=== PATIENT | male | born 1995 | race Two or more races ===

== ENCOUNTER 2021-02-03 14:16 | Inpatient (IN) | payer MEDICAID ==
[~2021-02-03] VITALS: Ht 165.1 cm; Wt 116.3 kg
[~2021-02-03 14:16] MED LIST: ONDA-144
[2021-02-03] MEDS ORDERED: TAMSULOSIN HYDROCHLORIDE 0.4 MG CAP PO ONE (14:30)
[2021-02-03] MEDS ORDERED: SODIUM CHLORIDE 0.9% 1,000 ML IV ONE ×2 (14:30)
[2021-02-03] MEDS ORDERED: KETOROLAC TROMETH 30 MG/ML 1ML VIAL IV ONE (14:30)
[2021-02-03] MEDS ORDERED: ONDANSETRON HCL 4 MG/2 ML VIAL IV ONE (14:30)
[2021-02-03] MEDS ORDERED: PROMETHAZINE HCL 25 MG/ML 1ML IV ONE (14:45)
[2021-02-03] MEDS ORDERED: HYDROmorphone HCL 2 MG/ML VL IV ONE (14:45)
[2021-02-03 15:32] LABS: Basophils # (auto) 0 10 ^3/uL (0-0.2); Basophils % (auto) 0.3 % (0.0-2.0); Eosinophils # (auto) 0 10 ^3/uL (0-0.8); Eosinophils % (auto) 0.2 % (0.0-7.0); Hematocrit 44.1 % (41.0-53.0); Hemoglobin 15.5 g/dL (13.5-17.5); Lymphocytes # (auto) 1.6 10 ^3/uL (0.4-5.4); Mean Corpuscular Hemoglobin 30.9 pg (28.0-32.0); Mean Corpuscular Hgb Conc. 35.2 g/dL (32.0-36.0); Mean Corpuscular Volume 87.9 fL (80.0-100.0); Monocytes # (auto) 0.5 10 ^3/uL (0-1.3); Monocytes % (auto) 4.6 % (0.0-12.0); Neutrophils # (auto) 9.3 10 ^3/uL (1.6-8.6); Neutrophils % (auto) 80.9 % (37.0-80.0); Nucleated Red Blood Cells % 0.1 %; Platelet Count (auto) 297 10^3/uL (140-450); Red Blood Cells 5.02 10^6/uL (4.5-5.90); Red Cell Distribution Width 13.7 % (11.8-14.3); White Blood Cell 11.4 10^3/uL (4.4-10.8)
[2021-02-03 15:47] LABS: Albumin 3.7 g/dL (3.4-5.0); Calcium 8.9 mg/dL (8.5-10.1); Potassium 3.5 mmol/L (3.5-5.1)
[2021-02-03 15:52] LABS: BUN/Creatinine Ratio 16.7; Bilirubin, Total 0.6 mg/dL (0.2-1.0); Total Protein 7.7 g/dL (6.4-8.2)
[2021-02-03] MEDS ORDERED: cefTRIAXone 1GM/50ML D5W 50 ML IV ONE (16:00)
[2021-02-03 18:11] LABS: Urine Amorphous Crystal FEW /hpf (None Seen); Urine Bacteria NONE SEEN /hpf (None Seen); Urine Blood 2+ /uL (Negative); Urine Mucus FEW (None Seen); Urine Specific Gravity 1.026 (1.001-1.035); Urine WBC 11 /hpf (0 - 3)
[2021-02-03] MEDS ORDERED: HYDROcodone-ACET 5/325MG TAB PO PRN (18:15)
[2021-02-03] MEDS ORDERED: ACETAMINOPHEN 500 MG TAB PO PRN (18:15)
[2021-02-03] MEDS ORDERED: ONDANSETRON HCL 4 MG/2 ML VIAL IV PRN (18:15)
[2021-02-03] MEDS ORDERED: MORPHINE SULF INJ 2 MG/ML SYRINGE 1ML IV PRN (18:15)
[2021-02-03] MEDS: SODIUM CHLORIDE 0.9% 1,000 ML IV SCH (18:46)
[2021-02-03 22:00] VITALS: BP 132/62
[2021-02-03] MEDS: DOCUSATE SOD 100 MG CAP PO SCH (22:09)
[2021-02-03] MEDS: traZODone HCL 50 MG TAB PO SCH (22:09)
[2021-02-04] MEDS ORDERED: TRAZ50TA2 PO (01:29)
[2021-02-04] MEDS: SODIUM CHLORIDE 0.9% 1,000 ML IV SCH ×3 (02:52→17:30)
[2021-02-04 05:00] VITALS: BP 124/69
[2021-02-04 05:35] LABS: Basophils # (auto) 0 10 ^3/uL (0-0.2); Basophils % (auto) 0.2 % (0.0-2.0); Eosinophils # (auto) 0 10 ^3/uL (0-0.8); Eosinophils % (auto) 0.3 % (0.0-7.0); Hematocrit 40.7 % (41.0-53.0); Lymphocytes # (auto) 1.9 10 ^3/uL (0.4-5.4); Lymphocytes % (auto) 23.5 % (10.0-50.0); Mean Corpuscular Hemoglobin 30.5 pg (28.0-32.0); Mean Corpuscular Hgb Conc. 34.5 g/dL (32.0-36.0); Mean Corpuscular Volume 88.5 fL (80.0-100.0); Monocytes # (auto) 0.7 10 ^3/uL (0-1.3); Monocytes % (auto) 9.5 % (0.0-12.0); Neutrophils # (auto) 5.2 10 ^3/uL (1.6-8.6); Neutrophils % (auto) 66.5 % (37.0-80.0); Nucleated Red Blood Cells % 0.1 %; Platelet Count (auto) 270 10^3/uL (140-450); Red Blood Cells 4.59 10^6/uL (4.5-5.90); Red Cell Distribution Width 14.1 % (11.8-14.3); White Blood Cell 7.9 10^3/uL (4.4-10.8)
[2021-02-04 05:51] LABS: BUN/Creatinine Ratio 13.7; Calcium 8.7 mg/dL (8.5-10.1); Potassium 4.1 mmol/L (3.5-5.1)
[2021-02-04 08:00] VITALS: BP 112/73
[2021-02-04] MEDS: cefTRIAXone 1GM/50ML D5W 50 ML IV SCH (09:10)
[2021-02-04] MEDS: DOCUSATE SOD 100 MG CAP PO SCH ×2 (10:45→21:51)
[2021-02-04] MEDS: FAMOTIDINE 20 MG TAB PO SCH (10:46)
[2021-02-04 12:00] VITALS: BP 128/82
[2021-02-04] MEDS ORDERED: SODIUM CHLORIDE 0.9% 1,000 ML IV ONE (12:00)
[2021-02-04] MEDS ORDERED: MANNITOL FTV 25% 12.5 GM/50 ML 50 ML IV ONE (12:00)
[2021-02-04 16:00] VITALS: BP 123/68
[2021-02-04] MEDS ORDERED: TAMSULOSIN HYDROCHLORIDE 0.4 MG CAP PO SCH (18:00)
[2021-02-04] MEDS: traZODone HCL 50 MG TAB PO SCH (21:51)
[2021-02-04 22:00] VITALS: BP 131/70
[2021-02-05] MEDS: SODIUM CHLORIDE 0.9% 1,000 ML IV SCH ×2 (01:05→08:59)
[2021-02-05 05:00] VITALS: BP 126/72
[2021-02-05 05:58] LABS: Basophils # (auto) 0 10 ^3/uL (0-0.2); Basophils % (auto) 0.3 % (0.0-2.0); Eosinophils # (auto) 0.1 10 ^3/uL (0-0.8); Eosinophils % (auto) 0.9 % (0.0-7.0); Hematocrit 39.6 % (41.0-53.0); Hemoglobin 13.7 g/dL (13.5-17.5); Lymphocytes # (auto) 2.3 10 ^3/uL (0.4-5.4); Lymphocytes % (auto) 31.4 % (10.0-50.0); Mean Corpuscular Hemoglobin 30.6 pg (28.0-32.0); Mean Corpuscular Hgb Conc. 34.5 g/dL (32.0-36.0); Mean Corpuscular Volume 88.7 fL (80.0-100.0); Monocytes # (auto) 0.6 10 ^3/uL (0-1.3); Monocytes % (auto) 8.2 % (0.0-12.0); Neutrophils # (auto) 4.3 10 ^3/uL (1.6-8.6); Neutrophils % (auto) 59.2 % (37.0-80.0); Nucleated Red Blood Cells % 0.1 %; Platelet Count (auto) 257 10^3/uL (140-450); Red Blood Cells 4.46 10^6/uL (4.5-5.90); Red Cell Distribution Width 13.8 % (11.8-14.3); White Blood Cell 7.2 10^3/uL (4.4-10.8)
[2021-02-05 06:35] LABS: Albumin 3.1 g/dL (3.4-5.0); BUN/Creatinine Ratio 11.4; Bilirubin, Total 0.5 mg/dL (0.2-1.0); Calcium 8.7 mg/dL (8.5-10.1); Total Protein 6.5 g/dL (6.4-8.2)
[2021-02-05] MEDS: FAMOTIDINE 20 MG TAB PO SCH (08:37)
[2021-02-05] MEDS: cefTRIAXone 1GM/50ML D5W 50 ML IV SCH (08:37)
[2021-02-05] MEDS: DOCUSATE SOD 100 MG CAP PO SCH (08:37)
[2021-02-05 09:00] VITALS: BP 124/76
== END 2021-02-05 15:50 | disposition home or self-care (01) | DRG 463 ==
LOC: ER 14:16 → EDBD 14:16 → OVERFLOW 14:17 → WEST WING 20:37
PROVIDERS: ADMIT Nurse Practitioner Acute Care; ATTEND Internal Medicine
DX: N13.6 Pyonephrosis (principal); E66.01 Morbid (severe) obesity due to excess calories; Z68.41 Body mass index [BMI] 40.0-44.9, adult; Z20.822 Contact with and (suspected) exposure to COVID-19; N13.9 Obstructive and reflux uropathy, unspecified; D72.829 Elevated white blood cell count, unspecified; G47.00 Insomnia, unspecified; Z88.8 Allergy status to other drugs, medicaments and biological substances; Z91.030 Bee allergy status
CPT/HCPCS: 36415; 74176; 80048; 80053; 81001; 85025; 87086; 87426; 96361; 96365; 96375; G0378; J0696; J1885; J2405

== ENCOUNTER 2023-08-04 06:05 | Emergency (ER) | payer MEDICAID ==
[~2023-08-04] VITALS: Ht 165.1 cm; Wt 100.0 kg
[~2023-08-04 06:05] MED LIST changes: +TRAZ-227 PO
[2023-08-04 06:51] LABS: Basophils # (auto) 0 10 ^3/uL (0-0.2); Basophils % (auto) 0.3 % (0.0-2.0); Eosinophils # (auto) 0.1 10 ^3/uL (0-0.8); Eosinophils % (auto) 1.4 % (0.0-7.0); Hematocrit 49.2 % (41.0-53.0); Hemoglobin 16.4 g/dL (13.5-17.5); Lymphocytes # (auto) 3.2 10 ^3/uL (0.4-5.4); Lymphocytes % (auto) 35.8 % (10.0-50.0); Mean Corpuscular Hemoglobin 29.8 pg (28.0-32.0); Mean Corpuscular Hgb Conc. 33.3 g/dL (32.0-36.0); Mean Corpuscular Volume 89.4 fL (80.0-100.0); Monocytes # (auto) 0.9 10 ^3/uL (0-1.3); Monocytes % (auto) 9.7 % (0.0-12.0); Neutrophils # (auto) 4.7 10 ^3/uL (1.6-8.6); Neutrophils % (auto) 52.8 % (37.0-80.0); Nucleated Red Blood Cells % 0.1 %; Red Cell Distribution Width 14.3 % (11.8-14.3); White Blood Cell 8.9 10^3/uL (4.4-10.8)
[2023-08-04 07:06] LABS: Alanine Aminotransferase 68 U/L (7-40); Albumin 5.1 g/dL (3.2-4.8); Alkaline Phosphatase 81 U/L (46-116); Anion Gap 8 (5-15); Aspartate Aminotransferase 27 U/L (13-40); BUN/Creatinine Ratio 14.1 (10.0-20.0); Blood Urea Nitrogen 14 mg/dL (9-23); Calcium 9.2 mg/dL (8.7-10.4); Carbon Dioxide 27 mmol/L (20-30); Chloride 105 mmol/L (98-107); Glucose 111 mg/dL (74-106); Potassium 3.5 mmol/L (3.5-5.1); Sodium 140 mmol/L (136-145)
[2023-08-04 07:07] LABS: Bilirubin, Total 0.4 mg/dL (0.2-1.0); Total Protein 7.3 g/dL (5.7-8.2)
[2023-08-04 07:28] VITALS: TEMP 98.3
[2023-08-04 07:30] VITALS: PULSE 69; RESP 22; O2SAT 98
[2023-08-04] MEDS ORDERED: KETOROLAC TROMETH 30 MG/ML 1ML VIAL IV ONE ×2 (07:30→09:15)
[2023-08-04] MEDS ORDERED: SODIUM CHLORIDE 0.9% 1,000 ML IV ONE ×2 (07:30)
[2023-08-04] MEDS ORDERED: TAMS-35 PO (09:03)
[2023-08-04] MEDS ORDERED: IBU600T PO (09:03)
[2023-08-04] MEDS ORDERED: cefTRIAXone 1GM/50ML D5W 50 ML IV ONE (09:15)
[2023-08-04] MEDS ORDERED: HYDROcodone-ACET 5/325MG TAB PO ONE (09:15)
[2023-08-04] MEDS ORDERED: FUROSEMIDE 20 MG/2 ML VIAL IV ONE (09:15)
[2023-08-04] MEDS ORDERED: TAMSULOSIN HYDROCHLORIDE 0.4 MG CAP PO ONE (09:15)
[2023-08-04 09:31] VITALS: BP 123/59; PULSE 60; RESP 16; O2SAT 98
== END 2023-08-04 10:12 | disposition home or self-care (01) ==
LOC: EDBD 06:05 → ER 06:05
DX: N20.0 Calculus of kidney (principal); Z79.899 Other long term (current) drug therapy; Z88.8 Allergy status to other drugs, medicaments and biological substances; Z91.030 Bee allergy status
CPT/HCPCS: 36415; 74176; 80053; 85025; 96361; 96365; 96375; 96376; 99285; J0696; J1885; J1940; J7030

== ENCOUNTER 2024-07-24 19:53 | Inpatient (IN) | payer MEDICAID ==
[~2024-07-24] VITALS: Ht 162.6 cm; Wt 130.9 kg
[~2024-07-24 19:53] MED LIST changes: +IBU600T PO; +TAMS-35 PO
[2024-07-24 20:57] LABS: Basophils # (auto) 0 10 ^3/uL (0-0.2); Basophils % (auto) 0.2 % (0.0-2.0); Eosinophils # (auto) 0 10 ^3/uL (0-0.8); Eosinophils % (auto) 0.2 % (0.0-7.0); Hematocrit 46.9 % (41.0-53.0); Hemoglobin 16.1 g/dL (13.5-17.5); Lymphocytes # (auto) 1.5 10 ^3/uL (0.4-5.4); Lymphocytes % (auto) 12.5 % (10.0-50.0); Mean Corpuscular Hemoglobin 30.3 pg (28.0-32.0); Mean Corpuscular Hgb Conc. 34.3 g/dL (32.0-36.0); Mean Corpuscular Volume 88.4 fL (80.0-100.0); Monocytes # (auto) 0.7 10 ^3/uL (0-1.3); Monocytes % (auto) 5.5 % (0.0-12.0); Neutrophils # (auto) 10.1 10 ^3/uL (1.6-8.6); Neutrophils % (auto) 81.6 % (37.0-80.0); Nucleated Red Blood Cells % 0.1 %; Platelet Count (auto) 356 10^3/uL (140-450); Red Cell Distribution Width 14.1 % (11.8-14.3); White Blood Cell 12.4 10^3/uL (4.4-10.8)
[2024-07-24 20:59] LABS: Anion Gap 5 (5-15); Carbon Dioxide 27 mmol/L (20-30); Chloride 107 mmol/L (98-107); Potassium 3.7 mmol/L (3.5-5.1); Sodium 139 mmol/L (136-145)
[2024-07-24 21:00] LABS: Calcium 9.8 mg/dL (8.7-10.4)
[2024-07-24 21:05] LABS: BUN/Creatinine Ratio 14.3 (10.0-20.0); Blood Urea Nitrogen 16 mg/dL (9-23); Glucose 106 mg/dL (74-106)
[2024-07-24] MEDS ORDERED: TAMS1CAP25 PO (21:49)
[2024-07-24] MEDS ORDERED: CEFD300C2 PO (21:50)
[2024-07-24] MEDS ORDERED: HYDR-4902 PO (21:52)
[2024-07-24] MEDS ORDERED: ACETAMINOPHEN 325 MG TAB PO PRN (23:45)
[2024-07-25] MEDS: ONDANSETRON HCL 4 MG/2 ML VIAL IV ONE (00:39)
[2024-07-25] MEDS: TAMSULOSIN HYDROCHLORIDE 0.4 MG CAP PO ONE (00:40)
[2024-07-25] MEDS: SODIUM CHLORIDE 0.9% 1,000 ML IV ONE (00:40)
[2024-07-25] MEDS: FUROSEMIDE 20 MG/2 ML VIAL IV ONE (00:40)
[2024-07-25] MEDS: MORPHINE SULFATE INJ 2 MG/ml SYRG IV ONE (00:41)
[2024-07-25 00:49] VITALS: PULSE 60; O2SAT 96
[2024-07-25] MEDS: HYDROcodone-ACET 5/325MG TAB PO PRN (03:24)
[2024-07-25 03:42] LABS: Chloride 105 mmol/L (98-107); Potassium 4.1 mmol/L (3.5-5.1); Sodium 138 mmol/L (136-145)
[2024-07-25 03:43] LABS: Anion Gap 9 (5-15); Carbon Dioxide 24 mmol/L (20-30)
[2024-07-25 03:44] LABS: Calcium 9.5 mg/dL (8.7-10.4)
[2024-07-25 03:48] LABS: Glucose 130 mg/dL (74-106)
[2024-07-25 03:49] LABS: BUN/Creatinine Ratio 10.7 (10.0-20.0); Blood Urea Nitrogen 15 mg/dL (9-23)
[2024-07-25] MEDS: MORPHINE SULFATE INJ 2 MG/ml SYRG IV PRN (05:47)
[2024-07-25] MEDS: ONDANSETRON HCL 4 MG/2 ML VIAL IV PRN (05:48)
[2024-07-25 07:49] LABS: Urine Bacteria None Seen /hpf (None Seen)
[2024-07-25 08:01] LABS: Urine Blood 2+ /uL (Negative); Urine Clarity Clear (Clear); Urine Color Light-Yellow (Yellow); Urine Mucus FEW (None Seen); Urine Protein, UAD TRACE (Negative); Urine Specific Gravity 1.022 (1.001-1.035); Urine Urobilinogen Normal (Negative); Urine WBC 1 /hpf (0 - 3); Urine pH 5.5 (5.0-9.0)
[2024-07-25 08:06] VITALS: PULSE 90; RESP 16; O2SAT 97
[2024-07-25] MEDS: SODIUM CHLORIDE 0.9% 1,000 ML IV SCH (11:41)
[2024-07-25 12:40] LABS: Basophils # (auto) 0 10 ^3/uL (0-0.2); Basophils % (auto) 0.2 % (0.0-2.0); Eosinophils # (auto) 0 10 ^3/uL (0-0.8); Eosinophils % (auto) 0.1 % (0.0-7.0); Hematocrit 46.9 % (41.0-53.0); Hemoglobin 15.9 g/dL (13.5-17.5); Lymphocytes # (auto) 0.9 10 ^3/uL (0.4-5.4); Lymphocytes % (auto) 6.7 % (10.0-50.0); Mean Corpuscular Hemoglobin 30.5 pg (28.0-32.0); Mean Corpuscular Hgb Conc. 33.8 g/dL (32.0-36.0); Mean Corpuscular Volume 90.3 fL (80.0-100.0); Monocytes # (auto) 0.7 10 ^3/uL (0-1.3); Platelet Count (auto) 350 10^3/uL (140-450); Red Blood Cells 5.19 10^6/uL (4.5-5.90); Red Cell Distribution Width 14.3 % (11.8-14.3); White Blood Cell 13.6 10^3/uL (4.4-10.8)
[2024-07-25 13:10] LABS: Amphetamine Screen, Urine Neg (NEGATIVE); Barbiturate Scree,Urine Neg (NEGATIVE); Benzodiazephine Screen, Urine Neg (NEGATIVE); Cannabinoid Screen, Urine Neg (NEGATIVE); Cocaine Screen, Urine Neg (NEGATIVE); Opiate Scree,Urine Pos (NEGATIVE); Phencyclidine Screen, Urine Neg (NEGATIVE)
[2024-07-25] MEDS: MANNITOL FTV 25% 12.5 GM/50 ML 50 ML IV ONE (13:37)
[2024-07-25 14:21] LABS: Albumin 4.6 g/dL (3.2-4.8); Bilirubin, Direct 0.2 mg/dL (<0.3); Bilirubin, Total 0.7 mg/dL (0.2-1.0); Total Protein 7.2 g/dL (5.7-8.2)
[2024-07-25 16:39] VITALS: PULSE 78; RESP 20; O2SAT 98
[2024-07-25 16:40] VITALS: BP 127/68; PULSE 87; RESP 18; TEMP 98.2; O2SAT 98
[2024-07-25 17:00] VITALS: BP 127/68; PULSE 82; RESP 18; TEMP 98.2; O2SAT 96
[2024-07-25] MEDS: TAMSULOSIN HYDROCHLORIDE 0.4 MG CAP PO SCH (17:50)
[2024-07-25 21:00] VITALS: BP 115/60; PULSE 87; RESP 20; TEMP 98.8; O2SAT 91
[2024-07-25] MEDS: TEMAZEPAM 15 MG CAP PO PRN (22:31)
[2024-07-26] VITALS (8 sets, daily range): BP systolic 111–144; BP diastolic 61–96; PULSE 76–103; RESP 16–19; TEMP 98.3–98.8; O2SAT 95–100
[2024-07-26 07:12] LABS: Basophils # (auto) 0 10 ^3/uL (0-0.2); Basophils % (auto) 0.2 % (0.0-2.0); Eosinophils # (auto) 0 10 ^3/uL (0-0.8); Eosinophils % (auto) 0.1 % (0.0-7.0); Hematocrit 41.8 % (41.0-53.0); Hemoglobin 14.5 g/dL (13.5-17.5); Lymphocytes # (auto) 1.4 10 ^3/uL (0.4-5.4); Lymphocytes % (auto) 13.3 % (10.0-50.0); Mean Corpuscular Hemoglobin 30.7 pg (28.0-32.0); Mean Corpuscular Hgb Conc. 34.6 g/dL (32.0-36.0); Mean Corpuscular Volume 88.7 fL (80.0-100.0); Monocytes % (auto) 9.2 % (0.0-12.0); Neutrophils # (auto) 8.3 10 ^3/uL (1.6-8.6); Neutrophils % (auto) 77.2 % (37.0-80.0); Nucleated Red Blood Cells % 0.1 %; Platelet Count (auto) 276 10^3/uL (140-450); Red Blood Cells 4.71 10^6/uL (4.5-5.90); Red Cell Distribution Width 14.2 % (11.8-14.3); White Blood Cell 10.8 10^3/uL (4.4-10.8)
[2024-07-26 07:19] LABS: Anion Gap 5 (5-15); Calcium 9.1 mg/dL (8.7-10.4); Carbon Dioxide 28 mmol/L (20-30); Chloride 101 mmol/L (98-107); Potassium 3.3 mmol/L (3.5-5.1); Sodium 134 mmol/L (136-145)
[2024-07-26 07:25] LABS: Glucose 95 mg/dL (74-106)
[2024-07-26 07:26] LABS: BUN/Creatinine Ratio 6.4 (10.0-20.0); Blood Urea Nitrogen 9 mg/dL (9-23); Magnesium 1.8 mg/dL (1.6-2.6)
[2024-07-26] MEDS: POTASSIUM CHLORIDE 40 MEQ, LIDOCAINE 1% (LOCAL ANESTH.) 4 ML in SODIUM CHL 0.9% 250 ML IV ONE (08:15)
[2024-07-26] MEDS: MAGNESIUM OXIDE 400 MG TAB PO ONE (11:43)
[2024-07-27] VITALS (7 sets, daily range): BP systolic 113–144; BP diastolic 66–82; PULSE 80–99; RESP 15–18; TEMP 97.6–98.9; O2SAT 94–100
[2024-07-27 06:31] LABS: Basophils # (auto) 0 10 ^3/uL (0-0.2); Basophils % (auto) 0.1 % (0.0-2.0); Eosinophils # (auto) 0 10 ^3/uL (0-0.8); Eosinophils % (auto) 0.2 % (0.0-7.0); Hematocrit 41.6 % (41.0-53.0); Hemoglobin 14.7 g/dL (13.5-17.5); Lymphocytes # (auto) 1.4 10 ^3/uL (0.4-5.4); Lymphocytes % (auto) 13.5 % (10.0-50.0); Mean Corpuscular Hemoglobin 31.3 pg (28.0-32.0); Mean Corpuscular Hgb Conc. 35.2 g/dL (32.0-36.0); Mean Corpuscular Volume 88.7 fL (80.0-100.0); Monocytes # (auto) 0.9 10 ^3/uL (0-1.3); Monocytes % (auto) 8.7 % (0.0-12.0); Neutrophils # (auto) 7.9 10 ^3/uL (1.6-8.6); Neutrophils % (auto) 77.5 % (37.0-80.0); Platelet Count (auto) 286 10^3/uL (140-450); Red Blood Cells 4.69 10^6/uL (4.5-5.90); Red Cell Distribution Width 13.9 % (11.8-14.3); White Blood Cell 10.3 10^3/uL (4.4-10.8)
[2024-07-27 06:35] LABS: Alanine Aminotransferase 39 U/L (7-40); Alkaline Phosphatase 80 U/L (46-116); Anion Gap 8 (5-15); BUN/Creatinine Ratio 6.2 (10.0-20.0); Blood Urea Nitrogen 8 mg/dL (9-23); Calcium 9.4 mg/dL (8.7-10.4); Carbon Dioxide 23 mmol/L (20-30); Chloride 103 mmol/L (98-107); Potassium 3.7 mmol/L (3.5-5.1); Sodium 134 mmol/L (136-145)
[2024-07-27 06:36] LABS: Albumin 4.5 g/dL (3.2-4.8)
[2024-07-27 06:37] LABS: Aspartate Aminotransferase 18 U/L (13-40); Bilirubin, Total 0.7 mg/dL (0.2-1.0); Total Protein 7.2 g/dL (5.7-8.2)
[2024-07-27 06:43] LABS: Glucose 82 mg/dL (74-106)
[2024-07-27] MEDS: CIPROFLOXACIN 400MG/200ML 200 ML IV ONE (10:42)
[2024-07-27] MEDS ORDERED: fentaNYL CITRATE 100 MCG/2 ML VL ONE ×2 (11:38→12:19)
[2024-07-27] MEDS ORDERED: PROPOFOL 10 MG/ML 20 ML IV ONE (11:39)
[2024-07-27] MEDS: IOHEXOL 300 MG/ML 100ML BOTTLE IJ ONE (12:22)
[2024-07-27] MEDS ORDERED: HYDROmorphone HCL 2 MG/ML VL/or syr IV PRN (13:15)
[2024-07-27] MEDS: ONDANSETRON HCL 4 MG/2 ML VIAL IV ONE (13:15)
[2024-07-28 01:00] VITALS: BP 131/84; PULSE 94; RESP 16; TEMP 97.9; O2SAT 98
[2024-07-28 05:00] VITALS: BP 138/79; PULSE 84; RESP 16; TEMP 98.1; O2SAT 96
[2024-07-28 06:40] LABS: Chloride 101 mmol/L (98-107); Potassium 3.2 mmol/L (3.5-5.1); Sodium 132 mmol/L (136-145)
[2024-07-28 06:41] LABS: Anion Gap 8 (5-15); Calcium 8.7 mg/dL (8.7-10.4); Carbon Dioxide 23 mmol/L (20-30)
[2024-07-28 06:46] LABS: Blood Urea Nitrogen 6 mg/dL (9-23); Glucose 76 mg/dL (74-106)
[2024-07-28 06:58] LABS: BUN/Creatinine Ratio 6.3 (10.0-20.0); Basophils # (auto) 0 10 ^3/uL (0-0.2); Basophils % (auto) 0.2 % (0.0-2.0); Eosinophils # (auto) 0 10 ^3/uL (0-0.8); Eosinophils % (auto) 0.6 % (0.0-7.0); Hemoglobin 14.2 g/dL (13.5-17.5); Lymphocytes # (auto) 1.4 10 ^3/uL (0.4-5.4); Lymphocytes % (auto) 20.2 % (10.0-50.0); Mean Corpuscular Hemoglobin 30.9 pg (28.0-32.0); Mean Corpuscular Hgb Conc. 34.6 g/dL (32.0-36.0); Mean Corpuscular Volume 89.3 fL (80.0-100.0); Monocytes # (auto) 0.7 10 ^3/uL (0-1.3); Monocytes % (auto) 9.4 % (0.0-12.0); Neutrophils % (auto) 69.6 % (37.0-80.0); Nucleated Red Blood Cells % 0.1 %; Platelet Count (auto) 276 10^3/uL (140-450); Red Blood Cells 4.59 10^6/uL (4.5-5.90); Red Cell Distribution Width 13.9 % (11.8-14.3); White Blood Cell 7.1 10^3/uL (4.4-10.8)
[2024-07-28 09:00] VITALS: BP 142/80; PULSE 84; RESP 18; TEMP 97.7; O2SAT 98
[2024-07-28] MEDS: POTASSIUM EFFERVESENT TAB 25 MEQ PO ONE (10:29)
[2024-07-28 15:42] VITALS: TEMP 36.5
[2024-07-28 17:00] VITALS: BP 135/83; PULSE 125; RESP 20; TEMP 97.6; O2SAT 98
== END 2024-07-28 19:54 | disposition home or self-care (01) | DRG 463 ==
LOC: EDBD 19:53 → ER 19:53 → OVERFLOW 23:34 → CENTRAL 07-25 16:13
PROVIDERS: ADMIT Internal Medicine Pulmonary Disease; ATTEND Anesthesiology
PROC: 0TF6XZZ Fragmentation in Right Ureter, External Approach (ICD-10-PCS; 2024-07-27)
PROC: 0T768DZ Dilation of Right Ureter with Intraluminal Device, Via Natural or Artificial Opening Endoscopic (ICD-10-PCS; principal; 2024-07-27 12:00)
DX: N13.6 Pyonephrosis (principal); N17.0 Acute kidney failure with tubular necrosis; E88.89 Other specified metabolic disorders; E66.01 Morbid (severe) obesity due to excess calories; R65.10 Systemic inflammatory response syndrome (SIRS) of non-infectious origin without acute organ dysfunction; G47.00 Insomnia, unspecified; K76.0 Fatty (change of) liver, not elsewhere classified; R79.89 Other specified abnormal findings of blood chemistry; Z68.42 Body mass index [BMI] 45.0-49.9, adult; Z88.8 Allergy status to other drugs, medicaments and biological substances; Z91.030 Bee allergy status; Z79.891 Long term (current) use of opiate analgesic; Z79.899 Other long term (current) drug therapy; Z87.442 Personal history of urinary calculi; Z82.49 Family history of ischemic heart disease and other diseases of the circulatory system; Z88.5 Allergy status to narcotic agent; Z91.018 Allergy to other foods
CPT/HCPCS: 36415; 71045; 74018; 74176; 80048; 80053; 80076; 80307; 81001; 83735; 85025; 86850; 86900; 86901; G0378; J2001; J2405; J2704

== ENCOUNTER 2024-09-07 11:28 | Emergency (ER) | payer MEDICAID ==
[~2024-09-07] VITALS: Ht 162.6 cm; Wt 127.0 kg
[~2024-09-07 11:28] MED LIST changes: +CEFD300C2 PO; +HYDR-4902 PO; +TAMS1CAP25 PO
[2024-09-07 12:40] LABS: Urine Bacteria None Seen /hpf (None Seen)
[2024-09-07 13:00] LABS: Urine Blood 3+ /uL (Negative); Urine Budding Yeast OCCASIONAL /hpf (None Seen); Urine Clarity Ex.Turbid (Clear); Urine Color Brown (Yellow); Urine Mucus FEW (None Seen); Urine Protein, UAD 2+ (Negative); Urine Specific Gravity 1.028 (1.001-1.035); Urine Urobilinogen Normal (Negative); Urine WBC 41 /hpf (0 - 3); Urine pH 5.5 (5.0-9.0)
[2024-09-07 13:28] VITALS: BP 140/84; PULSE 110; RESP 16; TEMP 98.2; O2SAT 96
[2024-09-07 13:49] LABS: Basophils # (auto) 0 10 ^3/uL (0-0.2); Basophils % (auto) 0.3 % (0.0-2.0); Eosinophils # (auto) 0 10 ^3/uL (0-0.8); Eosinophils % (auto) 0.5 % (0.0-7.0); Hematocrit 49.7 % (41.0-53.0); Hemoglobin 17.1 g/dL (13.5-17.5); Lymphocytes # (auto) 1.7 10 ^3/uL (0.4-5.4); Lymphocytes % (auto) 17.8 % (10.0-50.0); Mean Corpuscular Hemoglobin 30.5 pg (28.0-32.0); Mean Corpuscular Hgb Conc. 34.3 g/dL (32.0-36.0); Monocytes # (auto) 0.6 10 ^3/uL (0-1.3); Monocytes % (auto) 6.2 % (0.0-12.0); Neutrophils # (auto) 7.3 10 ^3/uL (1.6-8.6); Neutrophils % (auto) 75.2 % (37.0-80.0); Nucleated Red Blood Cells % 0.1 %; Platelet Count (auto) 362 10^3/uL (140-450); Red Blood Cells 5.59 10^6/uL (4.5-5.90); Red Cell Distribution Width 14.5 % (11.8-14.3); White Blood Cell 9.7 10^3/uL (4.4-10.8)
[2024-09-07 14:05] LABS: Chloride 107 mmol/L (98-107); Potassium 4.4 mmol/L (3.5-5.1); Sodium 138 mmol/L (136-145)
[2024-09-07 14:06] LABS: Anion Gap 7 (5-15); Carbon Dioxide 24 mmol/L (20-31)
[2024-09-07 14:07] LABS: Calcium 10.1 mg/dL (8.7-10.4)
[2024-09-07 14:11] LABS: BUN/Creatinine Ratio 23.9 (10.0-20.0); Blood Urea Nitrogen 21 mg/dL (9-23); Glucose 95 mg/dL (74-106)
[2024-09-07] MEDS: SODIUM CHLORIDE 0.9% 1,000 ML IV ONE (14:22)
[2024-09-07] MEDS ORDERED: BACDST PO (14:24)
[2024-09-07] MEDS ORDERED: IBUP-1456 PO (14:24)
[2024-09-13] MEDS ORDERED: NAP500T PO (16:13)
== END 2024-09-07 14:36 | disposition home or self-care (01) ==
LOC: ER 11:28
DX: N39.0 Urinary tract infection, site not specified (principal); R31.9 Hematuria, unspecified; Z96.0 Presence of urogenital implants; Z88.8 Allergy status to other drugs, medicaments and biological substances; Z88.5 Allergy status to narcotic agent; Z79.1 Long term (current) use of non-steroidal anti-inflammatories (NSAID); Z79.899 Other long term (current) drug therapy
CPT/HCPCS: 36415; 74176; 80048; 81001; 85025

== ENCOUNTER 2024-09-19 06:32 | Day surgery (SDC) | payer MEDICAID ==
[2024-09-15 09:34] LABS: Urine Bacteria None Seen /hpf (None Seen)
[2024-09-15 09:54] LABS: Basophils # (auto) 0 10 ^3/uL (0-0.2); Basophils % (auto) 0.4 % (0.0-2.0); Eosinophils # (auto) 0.1 10 ^3/uL (0-0.8); Eosinophils % (auto) 0.8 % (0.0-7.0); Hematocrit 47.2 % (41.0-53.0); Lymphocytes # (auto) 2.3 10 ^3/uL (0.4-5.4); Lymphocytes % (auto) 30.8 % (10.0-50.0); Mean Corpuscular Hgb Conc. 33.8 g/dL (32.0-36.0); Mean Corpuscular Volume 88.8 fL (80.0-100.0); Monocytes # (auto) 0.6 10 ^3/uL (0-1.3); Monocytes % (auto) 8.8 % (0.0-12.0); Neutrophils # (auto) 4.4 10 ^3/uL (1.6-8.6); Neutrophils % (auto) 59.2 % (37.0-80.0); Nucleated Red Blood Cells % 0.1 %; Platelet Count (auto) 351 10^3/uL (140-450); Red Blood Cells 5.32 10^6/uL (4.5-5.90); White Blood Cell 7.4 10^3/uL (4.4-10.8)
[2024-09-15 09:57] LABS: Urine Blood 3+ /uL (Negative); Urine Clarity Turbid (Clear); Urine Color Light-Brown (Yellow); Urine Mucus FEW (None Seen); Urine Protein, UAD 2+ (Negative); Urine Urobilinogen Normal (Negative); Urine WBC 28 /hpf (0 - 3)
[2024-09-15 10:01] LABS: Partial Thromboplastin Time 27.6 SEC (24.5-34.5); Prothrombin Time 10.6 sec (9.3-11.8)
[2024-09-15 10:04] LABS: Alanine Aminotransferase 45 U/L (7-40); Albumin 4.7 g/dL (3.2-4.8); Alkaline Phosphatase 71 U/L (46-116); Anion Gap 7 (5-15); Aspartate Aminotransferase 20 U/L (13-40); BUN/Creatinine Ratio 23.3 (10.0-20.0); Bilirubin, Total 0.5 mg/dL (0.2-1.0); Blood Urea Nitrogen 20 mg/dL (9-23); Calcium 9.9 mg/dL (8.7-10.4); Carbon Dioxide 26 mmol/L (20-31); Chloride 104 mmol/L (98-107); Glucose 97 mg/dL (74-106); Potassium 4.3 mmol/L (3.5-5.1); Sodium 137 mmol/L (136-145)
[2024-09-15 10:05] LABS: Total Protein 7.4 g/dL (5.7-8.2)
[~2024-09-19] VITALS: Ht 162.6 cm; Wt 122.5 kg
[~2024-09-19 06:32] MED LIST changes: -CEFD300C2 PO; -IBU600T PO; +IBUP-1456 PO; +NAP500T PO; -ONDA-144; -TAMS-35 PO; -TAMS1CAP25 PO; -TRAZ-227 PO
[2024-09-19] MEDS ORDERED: ceFAZolin 2 GM/D5W100ml 100 ML IV ONE (08:21)
[2024-09-19] MEDS ORDERED: MIDAZOLAM HCL 2MG/2ML 2ml VIAL (1mg/ml) ONE (08:28)
[2024-09-19] MEDS ORDERED: fentaNYL CITRATE 100 MCG/2 ML VL ONE (08:28)
[2024-09-19] MEDS ORDERED: DexAMETHasone SOD PHOS 10MG/1ML VIAL INJ ONE (08:59)
[2024-09-19] MEDS ORDERED: PROPOFOL 10 MG/ML 20 ML IV ONE (08:59)
[2024-09-19 14:18] VITALS: PULSE 107; RESP 13; TEMP 98.5; O2SAT 98
[2024-09-19] MEDS ORDERED: SUCCINYLCHOLINE CHLORIDE 20 MG/ML 10ML VIAL IV ONE (14:33)
[2024-09-19 14:35] VITALS: BP 107/55; PULSE 89; RESP 14; O2SAT 100
[2024-09-19] MEDS ORDERED: LIDOCAINE 2% JELLY 11ml (GLYDO) ONE (14:37)
--- NOTE | 2024-09-19 14:43 | DVHDS2 ---
New Physician D'charge PN Admitting Diagnosis Admitting Diagnosis Indwelling right ureteral stent Discharge Diagnosis Same Operations or Procedures Cystoscopy with right stent removal Reason(s) For Hospitalization Surgery Treatment Plan Discharge Condition of Discharge Good Disposition Home Discharge Instructions Diet: Regular Activity: No Restrictions, As Tolerated Activity comment: Activity as tolerated Medications: Given Follow Up Care Follow Up/Referral: Follow-up as needed Discharge Statement: "Patient was advised to return to the ER or call 911 if any headaches, dizziness, shortness of breath, chest pain, abdominal pain, bleeding, fevers, or worsening of medical condition. Patient was counseled about treatment plan, medications, possible side effects, patientverbalized understanding. All questions were answered to the best of my ability. This discharge took greater then 30 minutes in planning, reviewing documentation, counseling the patient, and discussing with other team members." RABIA SHERMAN MD Sep 19, 2024 14:43
== END 2024-09-19 15:20 | disposition home or self-care (01) ==
LOC: SUR 06:32
PROVIDERS: ATTEND Urology
DX: Z46.6 Encounter for fitting and adjustment of urinary device (principal); I10 Essential (primary) hypertension; G47.33 Obstructive sleep apnea (adult) (pediatric); F90.9 Attention-deficit hyperactivity disorder, unspecified type; E66.01 Morbid (severe) obesity due to excess calories; Z68.42 Body mass index [BMI] 45.0-49.9, adult; Z79.899 Other long term (current) drug therapy; Z98.890 Other specified postprocedural states; Z88.5 Allergy status to narcotic agent; Z88.8 Allergy status to other drugs, medicaments and biological substances; Z91.030 Bee allergy status
CPT/HCPCS: 36415; 52310; 80053; 81001; 85025; 85610; 85730; 87086; C1769; J0330; J1100; J2250; J2704; J3010; J7030